=== PATIENT | male | born 1945 | race Caucasian/White ===

== ENCOUNTER → 2025-02-26 12:42 | Outpatient (REF) | payer MEDICARE, SELFPAY | LOC: EMG 12:42 | PROVIDERS: ATTENDING PHYSICIAN Specialist; FAMILY PHYSICIAN Family Medicine | DX: M25.552 Pain in left hip (principal); R20.0 Anesthesia of skin | CPT/HCPCS: 95886; 95911 ==

== ENCOUNTER → 2025-07-27 19:51 | Outpatient (REF) | payer MEDICARE, SELFPAY | LOC: PAVMRI 19:51 | PROVIDERS: ATTENDING PHYSICIAN Student in an Organized Health Care Education/Training Program | DX: G89.29 Other chronic pain (principal); M25.512 Pain in left shoulder; M25.511 Pain in right shoulder; M54.9 Dorsalgia, unspecified | CPT/HCPCS: 73221 ==